=== PATIENT | female | born 1995 | race Caucasian/White ===

== ENCOUNTER 2021-10-23 13:59 | Emergency (ER) | payer BC ==
[~2021-10-23] VITALS: Ht 152.4 cm; Wt 74.8 kg
[2021-10-23 14:34] VITALS: BP 115/57
--- NOTE | 2021-10-23 14:45 | NUR ---
BIB SELF C/O 7/10 FEET PAIN & BLISTER S/P PLAYING TAG X YESTERDAY. PMH: DENIES
[2021-10-23] MEDS: BACITRACIN OINT 500 UNITS/GM PKT TP ONE (15:17)
[2021-10-23] MEDS: IBUPROFEN 600 MG TAB PO ONE (15:17)
[2021-10-23] MEDS ORDERED: BACI1PAC6 TP (15:36)
[2021-10-23] MEDS ORDERED: IBUP-2213 PO (15:36)
[2021-10-23 15:40] VITALS: BP 115/57
--- NOTE | 2021-10-23 15:40 | NUR ---
Patient discharged with v/s stable. Written and verbal after care instructions given and explained. Patient alert, oriented and verbalized understanding of instructions. Ambulatory with steady gait. All questions addressed prior to discharge. ID band removed. Patient advised to follow up with PMD. Rx of BACITRACIN, IBUPROFEN given. Patient educated on indication of medication including possible reaction and side effects. Opportunity to ask questions provided and answered.
== END 2021-10-23 15:40 | disposition home or self-care (01) ==
LOC: MED 13:59
DX: S90.821A Blister (nonthermal), right foot, initial encounter (principal); S90.822A Blister (nonthermal), left foot, initial encounter; Z79.899 Other long term (current) drug therapy; X58.XXXA Exposure to other specified factors, initial encounter; Y93.89 Activity, other specified; Y92.89 Other specified places as the place of occurrence of the external cause; Y99.8 Other external cause status
CPT/HCPCS: 16020; 99282